=== PATIENT | female | born 1950 | race Two or more races ===

== ENCOUNTER → 2017-08-06 | Outpatient (CLI) | payer OTHER ==
[~2017-08-06] VITALS: Ht 152.4 cm; Wt 53.5 kg
[~2017-08-06] MED LIST: BUSPIRONE HCL10 MG; DITROPAN X10 MG/BOTT; EVISTA60 MG; GAS-X125 MG
== END | disposition home or self-care (01) ==
LOC: PPHC 13:40
DX: J45.21 Mild intermittent asthma with (acute) exacerbation (principal); J03.80 Acute tonsillitis due to other specified organisms; J30.89 Other allergic rhinitis

== ENCOUNTER 2017-08-12 09:06 | Outpatient (CLI) | payer OTHER | END 2017-08-12 09:15 | disposition home or self-care (01) | LOC: RAD 501 09:06 | DX: J41.0 Simple chronic bronchitis (principal) ==

== ENCOUNTER 2017-10-18 07:07 | Outpatient (CLI) | payer OTHER | END 2017-10-18 07:19 | disposition home or self-care (01) | LOC: TOM 07:07 | DX: R10.31 Right lower quadrant pain (principal); R10.32 Left lower quadrant pain | CPT/HCPCS: 74177; Q9965 ==

== ENCOUNTER 2017-10-26 08:31 | Outpatient (CLI) | payer OTHER | END 2017-10-26 08:34 | disposition home or self-care (01) | LOC: RX STUDY 08:31 | DX: R13.10 Dysphagia, unspecified (principal) ==

== ENCOUNTER 2018-02-15 08:14 | Outpatient (CLI) | payer OTHER ==
[~2018-02-15] VITALS: Ht 154.9 cm; Wt 54.4 kg
== END 2018-02-15 08:30 | disposition home or self-care (01) ==
LOC: OFIC 805 08:14
DX: R49.0 Dysphonia (principal); K21.9 Gastro-esophageal reflux disease without esophagitis; M54.2 Cervicalgia; R22.1 Localized swelling, mass and lump, neck; J00 Acute nasopharyngitis [common cold]

== ENCOUNTER 2018-02-28 07:41 | Outpatient (CLI) | payer OTHER | END 2018-02-28 07:51 | disposition home or self-care (01) | LOC: TOM 07:41 | DX: R22.1 Localized swelling, mass and lump, neck (principal) | CPT/HCPCS: 70491; Q9965 ==

== ENCOUNTER 2018-05-25 08:42 | Outpatient (CLI) | payer OTHER | END 2018-05-25 08:46 | disposition home or self-care (01) | LOC: SONOGRAMA 08:42 → MAMO-SONO 08:45 → SONOGRAMA 08:46 | DX: E03.8 Other specified hypothyroidism (principal); E04.1 Nontoxic single thyroid nodule ==

== ENCOUNTER 2018-08-27 08:35 | Outpatient (CLI) | payer OTHER | END 2018-08-27 08:37 | disposition home or self-care (01) | LOC: RAD 08:35 | DX: I10 Essential (primary) hypertension (principal) ==

== ENCOUNTER 2019-03-31 08:27 | Outpatient (CLI) | payer OTHER | END 2019-03-31 09:40 | disposition home or self-care (01) | LOC: SONOGRAMA 08:27 → MAMO-SONO 08:45 → SONOGRAMA 09:40 | DX: R16.0 Hepatomegaly, not elsewhere classified (principal) ==

== ENCOUNTER 2020-02-05 09:16 | Outpatient (CLI) | payer OTHER | END 2020-02-05 09:20 | disposition home or self-care (01) | LOC: RAD 09:16 | PROVIDERS: ATTEND Physical Medicine & Rehabilitation | DX: M65.30 Trigger finger, unspecified finger (principal); L03.032 Cellulitis of left toe; M06.89 Other specified rheumatoid arthritis, multiple sites ==

== ENCOUNTER 2021-02-14 08:07 | Outpatient (CLI) | payer OTHER | END 2021-02-14 08:12 | disposition home or self-care (01) | LOC: SONOGRAMA 08:07 → MAMO-SONO 08:15 | PROVIDERS: ATTEND Internal Medicine Gastroenterology | DX: Q61.01 Congenital single renal cyst (principal); R16.0 Hepatomegaly, not elsewhere classified ==

== ENCOUNTER 2021-09-03 08:50 | Outpatient (CLI) | payer OTHER | END 2021-09-03 08:52 | disposition home or self-care (01) | LOC: RAD 08:50 | PROVIDERS: ATTEND Specialist | DX: J45.998 Other asthma (principal) ==

== ENCOUNTER 2022-12-03 11:27 | Emergency (ER) | payer OTHER ==
[~2022-12-03] VITALS: Ht 152.4 cm; Wt 55.3 kg
[2022-12-03] MEDS ORDERED: CANDESARTAN CILE8 MG (12:33)
[2022-12-03] MEDS ORDERED: SIMVASTATIN5 MG (12:33)
[2022-12-03] MEDS ORDERED: CYMBALTA30 MG PO (12:33)
[2022-12-03] MEDS ORDERED: BUSPIRONE HCL7.5 MG (12:33)
== END 2022-12-03 20:27 | disposition home or self-care (01) ==
LOC: ER 11:27
DX: N39.0 Urinary tract infection, site not specified (principal); E87.1 Hypo-osmolality and hyponatremia; E86.0 Dehydration; R55 Syncope and collapse

== ENCOUNTER 2023-06-03 09:36 | Outpatient (CLI) | payer OTHER ==
[~2023-06-03 09:36] MED LIST changes: +BUSPIRONE HCL7.5 MG; +CANDESARTAN CILE8 MG; +CYMBALTA30 MG PO; +DITROPAN XL5 MG; +SIMVASTATIN5 MG; +ZOCOR5 MG
== END 2023-06-03 09:45 | disposition home or self-care (01) ==
LOC: RAD 09:36
PROVIDERS: ATTEND Internal Medicine Rheumatology
DX: M19.041 Primary osteoarthritis, right hand (principal); M19.042 Primary osteoarthritis, left hand

== ENCOUNTER 2023-07-30 12:40 | Outpatient (CLI) | payer OTHER | END 2023-07-30 12:44 | disposition home or self-care (01) | LOC: NUCLEAR 12:40 | PROVIDERS: ATTEND Internal Medicine Rheumatology | DX: M81.0 Age-related osteoporosis without current pathological fracture (principal) ==

== ENCOUNTER 2023-11-22 09:26 | Outpatient (CLI) | payer OTHER | END 2023-11-22 09:33 | disposition home or self-care (01) | LOC: RAD 09:26 | PROVIDERS: ATTEND Internal Medicine Rheumatology | DX: M17.11 Unilateral primary osteoarthritis, right knee (principal); M17.12 Unilateral primary osteoarthritis, left knee ==

== ENCOUNTER 2024-02-02 07:22 | Outpatient (CLI) | payer OTHER | END 2024-02-02 07:31 | disposition home or self-care (01) | LOC: MRI 07:22 | PROVIDERS: ATTEND Specialist | DX: S83.206A Unspecified tear of unspecified meniscus, current injury, right knee, initial encounter (principal); M25.469 Effusion, unspecified knee; S83.106A Unspecified dislocation of unspecified knee, initial encounter; M25.061 Hemarthrosis, right knee; R16.0 Hepatomegaly, not elsewhere classified | CPT/HCPCS: 73721 ==

== ENCOUNTER 2024-02-29 10:07 | Outpatient (CLI) | payer OTHER | END 2024-02-29 10:15 | disposition home or self-care (01) | LOC: RAD 10:07 | PROVIDERS: ATTEND Orthopaedic Surgery | DX: R07.9 Chest pain, unspecified (principal) ==

== ENCOUNTER 2024-03-14 08:06 | Outpatient (CLI) | payer OTHER | END 2024-03-14 08:12 | disposition home or self-care (01) | LOC: SONOGRAMA 08:06 | PROVIDERS: ATTEND Specialist | DX: R10.31 Right lower quadrant pain (principal); M75.102 Unspecified rotator cuff tear or rupture of left shoulder, not specified as traumatic ==

== ENCOUNTER 2024-03-29 10:51 | Outpatient (CLI) | payer OTHER | END 2024-03-29 11:00 | disposition home or self-care (01) | LOC: RAD 10:51 | PROVIDERS: ATTEND Orthopaedic Surgery | DX: M25.561 Pain in right knee (principal); M25.562 Pain in left knee ==

== ENCOUNTER 2024-04-06 08:12 | Outpatient (CLI) | payer OTHER | END 2024-04-06 08:13 | disposition home or self-care (01) | LOC: NUCLEAR 08:12 | PROVIDERS: ATTEND Orthopaedic Surgery | DX: M25.461 Effusion, right knee (principal); M25.462 Effusion, left knee; I87.2 Venous insufficiency (chronic) (peripheral) ==

== ENCOUNTER 2024-06-01 08:04 | Outpatient (CLI) | payer OTHER | END 2024-06-01 08:10 | disposition home or self-care (01) | LOC: RAD 08:04 | PROVIDERS: ATTEND Orthopaedic Surgery | DX: M25.561 Pain in right knee (principal) ==

== ENCOUNTER 2024-06-22 08:57 | Outpatient (CLI) | payer OTHER | END 2024-06-22 09:04 | disposition home or self-care (01) | LOC: MAMO-SONO 08:57 | PROVIDERS: ATTEND Obstetrics & Gynecology | DX: N60.01 Solitary cyst of right breast (principal); N60.02 Solitary cyst of left breast; Z12.31 Encounter for screening mammogram for malignant neoplasm of breast ==

== ENCOUNTER → 2024-08-28 09:36 | Outpatient (CLI) | payer OTHER ==
[2024-08-28 10:20] LABS: HEMATOCRIT 43.8 % (36.0-45.00); HEMOGLOBIN 14.6 g/dL (12.0-15.00); MEAN CELL VOLUME 91.9 fL (80.00-100.00); MEAN CORPUSCULAR HEMOGLOBIN 30.5 pg (27.00-32.0); MEAN CORPUSCULAR HGB CONC 33.2 g/dl (32.0-36.0); PLATELET COUNT 288 K/uL (150-450); RED BLOOD COUNT 4.77 M/uL (4.00-6.00); RED CELL DISTRIBUTION WIDTH 13.4 % (11.5-14.5)
[2024-08-28 10:28] LABS: COL EPI 96 SECONDS (82-175)
[2024-08-28 10:35] LABS: PARTIAL THROMBOPLASTIN TIME 27.5 SECONDS (22.0-34.0); PROTHROMBIN TIME 10.9 SECONDS (9.0-11.5)
[2024-08-28 10:56] LABS: % SATURACION 43.2 % (15-50); ALBUMIN 3.7 gm/dL (3.4-5.0); BILIRUBIN TOTAL 0.53 mg/dL (0.3-1.2); CALCIUM 9.4 mg/dL (8.5-10.1); CREATININE SERUM 0.61 mg/dL (0.55-1.02); FERRITIN 65.8 NG/ML (8-252); GFR 95.36; GLOBULINA 3.2 G/DL (2.4-3.5); POTASSIUM 4.41 mEq/L (3.5-5.1); TOTAL PROTEIN 6.9 gm/dL (6.4-8.2)
[2024-08-28 12:50] LABS: FOLIC ACID 16.65 ng/ml (4.78-20)
[2024-08-29 10:04] LABS: MANUAL PLATELET COUNT 414
[2024-08-29 10:06] LABS: PLATELET ESTIMATE NORMAL (NORMAL)
[2024-08-30 10:05] LABS: ALPHA FETO PROTEIN 2.3 ng/mL (0.0-9.2); CA 125 10.3 U/mL (0.0-38.1); CA 15-3 18.9 U/mL (0.0-25.0)
== END | disposition home or self-care (01) ==
LOC: LAB 09:36
PROVIDERS: ATTEND Internal Medicine Hematology & Oncology
DX: D50.8 Other iron deficiency anemias (principal); R79.9 Abnormal finding of blood chemistry, unspecified; I10 Essential (primary) hypertension; R74.02 Elevation of levels of lactic acid dehydrogenase [LDH]; K76.89 Other specified diseases of liver; E55.9 Vitamin D deficiency, unspecified; D68.8 Other specified coagulation defects; E56.1 Deficiency of vitamin K; D69.1 Qualitative platelet defects; C50.919 Malignant neoplasm of unspecified site of unspecified female breast; R97.8 Other abnormal tumor markers; C25.9 Malignant neoplasm of pancreas, unspecified; C56.9 Malignant neoplasm of unspecified ovary; R97.1 Elevated cancer antigen 125 [CA 125]; R97.0 Elevated carcinoembryonic antigen [CEA]; R77.2 Abnormality of alphafetoprotein; M79.81 Nontraumatic hematoma of soft tissue; K76.0 Fatty (change of) liver, not elsewhere classified; E78.2 Mixed hyperlipidemia; R32 Unspecified urinary incontinence; R15.1 Fecal smearing

== ENCOUNTER 2024-10-26 11:09 | Outpatient (CLI) | payer OTHER | END 2024-10-26 11:16 | disposition home or self-care (01) | LOC: RAD 11:09 | PROVIDERS: ATTEND Specialist | DX: M94.252 Chondromalacia, left hip (principal); S73.002A Unspecified subluxation of left hip, initial encounter; X58.XXXA Exposure to other specified factors, initial encounter; Y93.9 Activity, unspecified; Y92.9 Unspecified place or not applicable; Y99.9 Unspecified external cause status ==

== ENCOUNTER 2024-12-23 10:27 | Outpatient (CLI) | payer OTHER | END 2024-12-23 10:30 | disposition home or self-care (01) | LOC: RAD 10:27 | DX: I11.9 Hypertensive heart disease without heart failure (principal) ==

== ENCOUNTER 2025-02-06 07:57 | Outpatient (CLI) | payer OTHER | END 2025-02-06 08:01 | disposition home or self-care (01) | LOC: RAD 07:57 | DX: M17.11 Unilateral primary osteoarthritis, right knee (principal) ==

== ENCOUNTER 2025-03-01 09:49 | Outpatient (CLI) | payer OTHER | END 2025-03-01 09:56 | disposition home or self-care (01) | LOC: RAD 09:49 | DX: M17.12 Unilateral primary osteoarthritis, left knee (principal); Z96.651 Presence of right artificial knee joint ==

== ENCOUNTER 2025-03-27 07:17 | Outpatient (CLI) | payer OTHER ==
[2025-03-27 07:55] LABS: BASO % 0.9 % (0.1-1.2); EOS # 0.35 (0.04-0.54); EOS % 4.4 % (0.7-7.0); LYMPH # 1.55 (1.18-3.74); LYMPH % 19.6 % (19.3-53.1); MEAN PLATELET VOLUME 9.90 fl (9.4-12.4); MONO # 0.56 (0.24-0.82); MONO % 7.1 % (4.7-12.5); NEUT # 5.33 (1.56-6.13); NEUT % 67.6 % (34.0-71.1); RED CELL DISTRIBUTION WIDTH 13.0 % (11.6-14.4)
[2025-03-27 08:24] LABS: INR 0.99
[2025-03-27 08:34] LABS: COL EPI 119 SECONDS (82-175)
[2025-03-27 08:44] LABS: BUN CREA RATIO 25.0 (7.0-25.0); CREATININE SERUM 0.67 mg/dL (0.55-1.02); GFR 85.57; GLUCOSE FASTING 101.0 mg/dL (65-100)
[2025-03-27 08:45] LABS: % SATURACION 28.1 % (15-50); ALT/SGPT 20.0 U/L (12-78); AST/SGOT 14.0 U/L (15-37); BILIRUBIN TOTAL 0.43 mg/dL (0.3-1.2); FE 83.0 ug/dl (50-170); GLOBULINA 3.3 G/DL (2.4-3.5); LDH 169.0 U/L (84-246); OSMOLALITY SERUM 287.0 MOSM/KG (275-295)
[2025-03-27 14:36] LABS: FOLIC ACID > 20.00 ng/ml (4.78-20); VITAMIN D3 25 HYDROXY 30.31 ng/ml (30-120)
== END 2025-03-27 07:24 | disposition home or self-care (01) ==
LOC: LAB 07:17
PROVIDERS: ATTEND Internal Medicine Hematology & Oncology
DX: I10 Essential (primary) hypertension (principal); M79.81 Nontraumatic hematoma of soft tissue; K76.0 Fatty (change of) liver, not elsewhere classified; E78.2 Mixed hyperlipidemia; R32 Unspecified urinary incontinence; R15.1 Fecal smearing; D50.8 Other iron deficiency anemias; R79.9 Abnormal finding of blood chemistry, unspecified; R74.02 Elevation of levels of lactic acid dehydrogenase [LDH]; K76.89 Other specified diseases of liver; E55.9 Vitamin D deficiency, unspecified; D68.8 Other specified coagulation defects